=== PATIENT | male | born 1960 | race Caucasian/White ===

== ENCOUNTER → 2021-05-14 14:11 | Outpatient (BNVA) | payer OTHER, MEDICARE, MEDICAID, SELFPAY | PROVIDERS: PCP Physician Assistant; Visit Provider Urology | DX: N48.6 Induration penis plastica (principal); N43.41 Spermatocele of epididymis, single; R32 Unspecified urinary incontinence; N40.1 Benign prostatic hyperplasia with lower urinary tract symptoms; N13.8 Other obstructive and reflux uropathy; Z88.8 Allergy status to other drugs, medicaments and biological substances | CPT/HCPCS: 99202 ==

== ENCOUNTER → 2021-06-25 14:49 | Outpatient (BNVA) | payer OTHER, SELFPAY | PROVIDERS: PCP Physician Assistant; Visit Provider Urology | DX: N40.1 Benign prostatic hyperplasia with lower urinary tract symptoms (principal); N13.8 Other obstructive and reflux uropathy; E11.65 Type 2 diabetes mellitus with hyperglycemia; N52.1 Erectile dysfunction due to diseases classified elsewhere | CPT/HCPCS: 51798; 99212 ==

== ENCOUNTER → 2021-12-23 14:55 | Outpatient (BNVA) | payer OTHER, SELFPAY | PROVIDERS: PCP Physician Assistant; Visit Provider Urology | DX: N40.1 Benign prostatic hyperplasia with lower urinary tract symptoms (principal); N13.8 Other obstructive and reflux uropathy; R32 Unspecified urinary incontinence; E11.69 Type 2 diabetes mellitus with other specified complication; N52.1 Erectile dysfunction due to diseases classified elsewhere | CPT/HCPCS: 51798; 99212 ==

== ENCOUNTER 2022-06-25 14:12 | Outpatient (AMB) | payer OTHER, MEDICAID, SELFPAY ==
--- NOTE | 2022-06-25 10:51 | A.OFFVIS_ITS ---
Intake Intake Visit Reasons: 6 month follow up PSA Intake Note: Patient is present for psa follow up Pt is no longer taking terazosin would like to discuss this medication with Dr Davis Accompanied by: Self / Same As Patient Allergies dulaglutide [Trulicity] Allergy (Unknown, Verified 06/25/22 10:52) rash HPI HPI Comments History of Present Illness Details Jhoan is a pleasant male. Is seen by . He is seen for the following urologic conditions - lower urinary tract symptoms - erectile dysfunction Telemedicine evaluation 15 minute consultation [employer] Wants to stop his medication Has had blood pressure medications adjusted in this no longer an issue for urgency and frequency Also has had his diabetes medications further tightened PSA normal Twelve month follow-up Urinary tract symptoms Initial symptoms include nocturia and urgency frequency Had been wearing diapers for accidents Background of diabetes insulin dependent Current medications include terazosin 5 mg PSA 04/07 0.6 Erectile dysfunction Sildenafil on demand Spermatocele 3 cm in size Right testicular Minimal pain Occasional bother Can follow conservatively [facility] Medical History HTN (hypertension) Hyperlipidemia Type II diabetes mellitus with neurological manifestations Review of Systems Const All systems reviewed & are unremarkable except as noted in HPI and below Reports no additional complaints Resp Reports no additional complaints GI Reports no additional complaints Reports as per HPI Musc Reports no additional complaints Physical Exam Telemedicine evaluation Appropriate responses Regular breathing rate and rhythm HEENT Head: Yes normal to inspection Ears: hearing grossly normal bilaterally Eyes General: appearance normal, both eyes and all related structures Neck Neck: Yes normal visual inspection Chest Chest palpation & inspection: normal inspection of the chest Resp Effort & Inspection: normal respiratory effort and able to speak in complete sentences Assessment & Plan Assessment & Plan (1) Erectile dysfunction associated with type 2 diabetes mellitus: Code(s): E11.69 - Type 2 diabetes mellitus with other specified complication; N52.1 - Erectile dysfunction due to diseases classified elsewhere (2) Spermatocele: Code(s): N43.40 - Spermatocele of epididymis, unspecified (3) BPH w urinary obs/LUTS: Code(s): N40.1 - Benign prostatic hyperplasia with lower urinary tract symptoms; N13.8 - Other obstructive and reflux uropathy Plan 1 yr f/u Patient Instructions: The patient had an opportunity to ask questions regarding treatment plan. All questions were answered. Imaging studies, laboratory studies and physical exam results were discussed and reviewed in detail. No major barriers to understanding were identified. The patient expressed understanding and agreement with the above treatment plan. The patient is aware they should contact our office by phone for worsening of their current condition or the appearance of new symptoms. Compliance is encouraged with any medications and followup testing that is ordered. It is a privilege to be allowed the opportunity to participate in the urologic care of your patient. If you have any questions or concerns regarding treatment for the above conditions please do not hesitate to contact me. The office telephone contact is [phone]. This note is constructed using voice recognition software. While every effort has been made to ensure accuracy pump erector errors may have been included. Yours sincerely, Dr Catrachito Davis MD, [facility] Telehealth Telehealth Location of provider rendering services: practice address Location of patient: address on file Patient Identification confirmed using: Name, : Yes Telehealth method: voice only Patient verbally consented to treatment: Yes Patient verbally consented to billing insurance company: Yes Patient informed of any privacy concerns related to visit: Yes Coding Level of Care Code Tele Est Pt Level 4 (21987) Diagnoses Erectile dysfunction associated with type 2 diabetes mellitus E11.69; N52.1 Spermatocele N43.40 BPH w urinary obs/LUTS N40.1; N13.8
== END 2022-06-25 15:00 | disposition home or self-care (01) ==
PROVIDERS: PCP Physician Assistant; Visit Provider Urology
DX: E11.69 Type 2 diabetes mellitus with other specified complication (principal); N52.1 Erectile dysfunction due to diseases classified elsewhere; N43.40 Spermatocele of epididymis, unspecified; N40.1 Benign prostatic hyperplasia with lower urinary tract symptoms; N13.8 Other obstructive and reflux uropathy
CPT/HCPCS: 99499